=== PATIENT | female | born 1995 | race Caucasian/White ===

== ENCOUNTER → 2017-11-20 | Outpatient (CLI) | payer OTHER ==
[~2017-11-20] MED LIST: GADAVIST IV PRN
--- NOTE | 2017-11-20 18:52 | DIAGNOSTIC IMAGING REPORT ---
BRAIN COMBO CLINICAL HISTORY: R51 [id number] Vision [id number] COMPARISON STUDY: No previous studies for comparison. TECHNIQUE: Utilizing a 1.5 Alessandra magnet and dedicated coil, multiplanar, multiecho imaging of the brain was performed pre and postcontrast administration. IV administration of 6.5 mL of Gadavist contrast was uneventful. FINDINGS: Diffusion-weighted images are negative for an acute ischemic insult. Signal characteristics are unremarkable throughout. Ventricular system is midline. Sella and parasellar region are unremarkable. No abnormal postcontrast enhancement IMPRESSION: Normal study. The above report was generated using voice recognition software. It may contain grammatical, syntax or spelling errors. Electronically signed by: Germain Velasco M.D. 11/20/2017 6:50 PM Dictated Date/Time: 11/20/2017 6:47 PM
== END | disposition home or self-care (01) ==
LOC: C.MRI 16:52
PROVIDERS: ATTEND Physician Assistant
DX: H53.9 Unspecified visual disturbance (principal); R42 Dizziness and giddiness; R51 Headache